=== PATIENT | female | born 1945 | race Caucasian/White ===

== ENCOUNTER 2017-04-22 14:50 | Inpatient (IN) ==
--- NOTE | 2017-04-22 16:32 | IRU History & Physical Report ---
HPI IRU Date: 628 Chief complaint: My back hurts HPI: Ms. Keller is a very pleasant 71-year-old female who was mowing her yard on 02/2017. Referring physician is Dr. Val Shabazz and Dr. Frederick Hale in [place]. Her personal physician is Chitra Tapia MD. She was backing up while she was mowing and fell, landing on her bottom. She did have immediate pain in her lumbar spine area. However she got back up and finished mowing her yard. Over the next several weeks she continued to have pain in the back. Also had discomfort and what she describes as "sciatica" down the left leg. (She has had sciatica down the right leg previously but not down the left leg). Pain became worse and worse and she was encouraged by her neighbor to seek medical attention. She went to the emergency department in this regard on April [address] scan of the lumbar spine revealed an acute burst fracture of L3 with retropulsion of fragments. Dr. Hale was contacted and recommended immediate transfer to [facility]. She underwent surgery at [facility] on 04/18/2017. At that time and L2 - L4 laminectomy was done with instrumentation and fusion of L1-L5. Since then she has had continued discomfort in the back but it is getting better. She has had significant functional decline and is anticipated to be a good candidate for acute rehabilitation. At home she lives in her own home alone. She does have 2 steps to get into her house. She has used a walker in the past in conjunction with a knee replacement. However that was over a year ago and normally she does not use assistive devices. 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 She otherwise remains very active. Prior to her fall, she was independent with all activities. Since then she is minimal assistance for bathing and upper body dressing, moderate assistance for lower body dressing, minimal assistance for toileting, minimal assistance for bed/chair/wheelchair transfers, moderate assistance for trunk toilet transfers and total assistance for walking. She is able to walk with a rolling walker 15 feet. She is at risk for respiratory complications in view of her sedentary postoperative status. She is at risk for surgical site infection due to decreased activity level as well. She does have history of supraventricular tachycardia which flares up when she is under stress. In addition she is at risk for constipation in view of the use of narcotics. She does tend toward depression she states and is on venlafaxine in this regard. Because the use of narcotics she is at risk for more depressive symptoms. She is at risk for falls and subsequent injury. The following medical conditions are noted and require active monitoring and/or management: 1. History of supraventricular tachycardia 2. Depression 3. Risk for wound infection 4. Risk for falls The following therapies will be needed: 1. Physical therapy: for transfers and ambulation and stairs. 2. Occupational therapy: for ADL's and transfers. 3. Medical management: for the above conditions. 4. 24 hour Rehabilitation Nursing to monitor and address the following: Blood pressure, vital signs, pain management, bowel control in view of constipation. [facility] Patient Stated Medical History Osteoarthritis Yes Other Musculoskeletal Yes: OSTEOPOROSIS Medical History Updates: 1. Supraventricular tachycardia intermittently. 2. Depression. 3. Hypertension. 4. Osteoarthritis of the knees Surgical History: 1. Bilateral total knee replacements. 2. Cholecystectomy. 3. Pelvic cyst removalapparently benign. 4. Remote history of vaginal hysterectomy with subsequent removal of cervix. 5. Some type of gynecologic surgery related to IUD infection. 6. L2-3 laminectomy and L1-5 instrumented fusion Family History: Patient's father from lung cancer. He did smoke. Mother in relationship to a heart valve surgery. 2 brothers are both from "heart attack." 2 sisters are . One at age 14 from spinal meningitis. Another from breast cancer. - Social History Smoking status: Former smoker Packs per day: 0.5 (started at age 10 and smoked until age 40:1/2 pack daily or less) Substance use type: does not use Alcohol intake: current Alcohol intake frequency: other (drinks occasional beer typically in the summer. 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 She is . She lives alone in her own home. Review of Systems - Constitutional Constitutional: Present: fatigue - EENMT Eyes: Absent: blurry vision, change in vision, diplopia Balance: Absent: vertigo - Cardiovascular Cardiovascular: Absent: chest pain, palpitations, syncope, dyspnea on exertion, orthopnea, edema Rhythm: Present: regular rhythm Vascular: Absent: Raynaud's, atrophy, intermittent claudication, pedal edema, phlebitis - Respiratory Respiratory: Absent: cough, dyspnea, hemoptysis, dyspnea on exertion, wheezing, pain on inspiration, chest congestion, excessive phlegm production - Gastrointestinal Gastrointestinal: Present: abdominal pain (in relationship to possible abdominal wall hernia), change in bowel habits, constipation. Absent: dyspepsia , dysphagia, early satiety, hematemesis, hematochezia, melena, nausea - Musculoskeletal Musculoskeletal: Absent: abnormal gait, arthralgias - Integumentary/Breasts Integumentary: Absent: alopecia, change in hair, erythema, lesions - Neurological Neurological: Present: paresthesias (left leg discomfort since the fall). Absent: abnormal gait, abnormal movements, focal weakness, frequent falls - Psychiatric Psychiatric: Absent: abnormal sleep pattern, anhedonia Medications Home Medications Medication Instructions Recorded Confirmed Type Metoprolol Tartrate 12.5 mg PO DAILY #0 03/15/11 04/13/17 History Venlafaxine HCl [Effexor Xr] 37.5 mg PO DAILY #0 03/15/11 04/13/17 History Melatonin 3 mg PO HS #0 03/20/13 04/13/17 History Ibuprofen [Advil] 800 mg PO Q8H PRN #0 tab 08/21/13 04/13/17 History Acetaminophen [Acetaminophen ER] 1,300 mg PO TID PRN 04/13/17 04/13/17 History Calcium Carbonate 1,200 mg PO DAILY 04/13/17 04/13/17 History Cholecalciferol (Vitamin D3) 10,000 unit PO DAILY 04/13/17 04/13/17 History [Vitamin D3] DiltiaZEM IR [Cardizem Ir] 30 mg PO BID 04/13/17 04/13/17 History Omeprazole [Prilosec] 20 mg PO ACB 04/13/17 04/13/17 History Polyethylene Glycol 3350 [Miralax] 17 gm PO DAILY PRN 04/13/17 04/13/17 History Vitamin E 6 tab PO DAILY 04/13/17 04/13/17 History hydrOXYzine HCl [Hydroxyzine HCl] 25 mg PO TID PRN 04/13/17 04/13/17 History Allergies Allergy/AdvReac Type Severity Reaction Status Date / Time naproxen Allergy Restlessnes Verified 04/13/17 11:24 s Results IRU - Labs Labs: Outside records from [facility] are reviewed. Exam - Constitutional Present: no acute distress, average body habitus, cooperative - Routine HEENT Exam Head: Present: normocephalic, atraumatic, abrasion, hematoma Eye: Present: EOMI, PERRL. Absent: conjunctival icterus, scleral injection, conjunctivae pink ENT: Present: mucous membranes moist, oropharynx clear - Routine Neck Exam Present: supple, full ROM - Routine Respiratory Exam Present: CTA bilaterally. Absent: accessory muscle use, dyspnea, decreased breath sounds, prolonged expiratory phase, rales, respiratory distress, rhonchi , wheezes, crackles - Routine Cardiovascular Exam Present: RRR, S1, S2, no murmur. Absent: S3, S4 - Routine Abdominal Exam Present: soft, normoactive bowel sounds, non distended, non tender. Absent: organomegaly, mass - Routine Extremities Exam Absent: cyanosis, clubbing, edema, non tender - Routine Back/Spine/Pelvis Exam Back/Spine: Absent: full ROM - Routine Skin Exam Present: intact, dry, warm. Absent: erythema, lesions - Routine Neurological Exam Present: alert, oriented X3, CN II-XII intact - Routine Psychiatric Exam Present: normal affect, normal thought process, cooperative, good insight, good judgment Sepsis Assessment - Evaluation SIRS Criteria: none IRU A/P (1) Traumatic compression fracture of L3 lumbar vertebra Qualifiers: Encounter type: initial encounter Fracture type: closed Qualified Code(s) : S32.030A - Wedge compression fracture of third lumbar vertebra, initial encounter for closed fracture Current visit: Yes Status: Acute She is status post repair of L3 burst fracture from fall from standing height. Continues to have pain in the back as well as some left leg radiation of discomfort. An individualized program of intensive physical therapy and occupational therapy will be designed for this patient. She is at risk for poor wound healing due to sedentary activity from her surgery. (2) Benign essential hypertension Current visit: Yes Status: Chronic We'll monitor her blood pressures carefully. She does have history of SVT and we 'll monitor this as well. (3) Depression Qualifiers: Depression Type: major depressive disorder Major depression recurrence: single episode Active/Remission status: in partial remission Qualified Code( s): F32.4 - Major depressive disorder, single episode, in partial remission Current visit: Yes Status: Acute Patient reports that she has a history of depression but is on venlafaxine at present. Use of narcotics may exacerbate this as well. DVT Prophylaxis: SCD's Resuscitation Status: Full Code - Course Hospital Course: Ramon Bryan MD: - Interventions to Obtain Goals PT Treatment Plan: Balance/Proprioception, Functional Activities, Gait Training , Patient/Family Education OT Treatment Plan: ADL (Basic Care), Balance Training, IADL, Pt./Family Education Goals Progress/Modifications: It is anticipated the patient will achieve a modified independent level of functioning at the conclusion of therapy. She will return to her home in a safe manner able to care for herself. We will also be involved with pain management and blood pressure management as well as depression treatment.
--- NOTE | 2017-04-22 16:55 | IRU 24Hr Post Admit Eval ---
24 Hr Post Admission Physical - Relevant Changes Relevant Changes: No Reviewed: I have reviewed the patient's information and concur with the finding and results of the pre-admission screen. Certification: I certify the patient for rehabilitation. - Patient Condition (1) Traumatic compression fracture of L3 lumbar vertebra Status: Acute Qualifiers: Encounter type: initial encounter Fracture type: closed Qualified Code(s) : S32.030A - Wedge compression fracture of third lumbar vertebra, initial encounter for closed fracture Code(s): S32.030A - Wedge compression fracture of third lumbar vertebra, initial encounter for closed fracture Classification: Present on IRF Admission, IRF Tx That Should Address Diagnosis, Diagnosis Requiring Medical Follow Up (2) Benign essential hypertension Status: Chronic Code(s): I10 - Essential (primary) hypertension Classification: Present on IRF Admission, IRF Tx That Should Address Diagnosis, Diagnosis Requiring Medical Follow Up (3) Depression Status: Acute Qualifiers: Depression Type: major depressive disorder Major depression recurrence: single episode Active/Remission status: in partial remission Qualified Code( s): F32.4 - Major depressive disorder, single episode, in partial remission Code(s): F32.9 - Major depressive disorder, single episode, unspecified Classification: Present on IRF Admission, IRF Tx That Should Address Diagnosis, Diagnosis Requiring Medical Follow Up - Prior Functional Status Lives With: Alone Residence Type: Apartment/Private Home Assitive Devices: None Prior Functional Status: Indep. at home or school, Used no assistive device, Indep. w/ IADL - Current Functional Status Current Level of Function: She requires minimal assistance for bathing, upper body dressing, toileting, bed /chair/wheelchair transfers. She requires moderate assistance for lower body dressing, toilet transfers. She requires total assistance for walking. She is able to walk with a rolling walker 15 feet. Failed Alternative Therapy: Arrived from Acute Care Patient Requirements: The patient requires oversight by rehabilitation physician to manage their rehabilitation treatment plan and multidisciplinary approach to care that can only be provided in an IRF and requires a multidisciplinary approach to care, provided by professional PTs, OTs, STs, dieticians, RTs, rehabilitation nurses and is not available in lesser levels of care. Limitations Req: Mobility Impairment, ADL Impairment, Limited Mobility Physical Therapy Minutes: 90 Occupational Therapy Minutes: 90 Therapy: The patient is to receive therapy at least 5 days a week. - Complications/Comorbidities Impact on Functional Outcomes: Her recent fracture and repair resulting in significant pain will impact her functional recovery. In addition she has left leg sciatica likely from the fracture as well which may impact her functional recovery. Barriers to Discharge: Weakness, Balance, Endurance, Pain Control - Plan to Avoid Complications Plan to Avoid Complications: The patient cannot receive this care in a lesser intensive setting such as [facility] or Outpatient Therapy due to the patient requiring the following : Pain management, avoidance of constipation, need for closely monitoring the patient's wound which is at risk of infection, history of SVT and hypertension. .
[2017-04-22 16:58] VITALS: BMI 28.5
[2017-04-22] MEDS ORDERED: HYDROCODONE/APAP 7.5 MG/325 MG TABLET PO PRN (17:03)
[2017-04-22] MEDS ORDERED: POLYETHYL. GLYCOL 3350 BOTTLE 238 GM PO PRN (17:03)
[2017-04-22] MEDS ORDERED: ACETAMINOPHEN 325 MG TABLET PO PRN (17:03)
[2017-04-22] MEDS: DiltiaZEM IR 30 MG TABLET PO SCH (21:08)
[2017-04-22] MEDS: HYDROCODONE/APAP 7.5 MG/325 MG TABLET PO PRN (21:42)
[2017-04-23] MEDS: HYDROCODONE/APAP 7.5 MG/325 MG TABLET PO PRN ×4 (04:26→17:48)
[2017-04-23] MEDS: PANTOPRAZOLE 40 MG TABLET PO SCH (05:35)
[2017-04-23] MEDS ORDERED: Venlafaxine XR 37.5 MG CAPSULE (24hr) PO SCH (09:00)
[2017-04-23] MEDS: ENOXAPARIN 40 MG/0.4 ML INJECTION SQ SCH (09:31)
[2017-04-23] MEDS: POLYETHYL GLYCOL 3350 17gm PACKET PO SCH ×4 (09:31→20:45)
[2017-04-23] MEDS: DOCUSATE SODIUM 100 MG CAPSULE PO SCH ×2 (09:31→09:40)
[2017-04-23] MEDS: CALCIUM CARBONATE 600 MG TABLET PO SCH (09:31)
[2017-04-23] MEDS: DiltiaZEM IR 30 MG TABLET PO SCH ×2 (09:31→20:44)
--- NOTE | 2017-04-23 10:00 | Consult Note ---
<Nkechi Hernandez - Last Filed: 04/23/17 10:08> Consult Information - Data of Consult Consult date: 04/23/17 Requesting Physician: Ramon Bryan MD Primary Care Provider: Chitra Tapia MD. Family Provider: Chitra Tapia MD. - Consult Narrative Reason for consult: Medical management, s/p laminectomy History of present illness: Leslie Keller (Leah) is a 71-year-old female who presented to [facility] emergency department on 04/13/17 for evaluation of severe lower back pain and "sciatica" down her left leg. She reported at that time that she fell backwards while mowing the lawn on 03/22/17 and hit her back on a entry specialists. Since her fall, she had had progressively worsening lower back pain with radiation down her left leg, which she described as "sciatica". Evaluation in the ED included lumbar CT which revealed acute L3 burst fracture with retropulsion. Dr. Hale at [facility] was contacted and he recommended transferring her to [place]. She underwent L2-L4 laminectomy with instrumentation and fusion of L1- L5 on 04/18/17. Since her surgery, her pain has improved but she has experienced significant functional decline. She was accepted to [facility] IRU for intensive therapy for continued strengthening and improvement in functional ability. On exam, she is initially seen while ambulating in the [place]tega with assistance. Complete exam occurs in her room with physical therapy present. She complains of midline lower back pain without radiation. She denies any recent illness, fevers, chill, chest pain, shortness of breath, abdominal pain, nausea, vomiting or dysuria. She admits to occasional non-productive cough since her hospitalization in [place]. She states that she does not have much of an appetite and feels "full". She reports no BM since 04/18 but admits to passing gas. Prior medical records and nursing notes were reviewed. Labs were obtained today and revealed anemia with hemoglobin of 11.2 as well as fasting hyperglycemia with glucose of 126. She denies any history of diabetes. [facility] Patient Stated Medical History Paroxysmal SVT. Hypertension. Hypercholesterolemia. Osteoarthritis, knees. Osteopenia. Vitamin D deficiency. Depression. GERD. Constipation. History of traumatic compression fracture of L3. Surgical History: 1. Bilateral total knee replacements-right 2014, left 2009. 2. Cholecystectomy-2009. 3. Pelvic cyst removalapparently benign. 4. Vaginal hysterectomy with subsequent removal of cervix-1981. 5. Some type of gynecologic surgery related to IUD infection. 6. L2-3 laminectomy and L1-5 instrumented fusion-04/2017. 7. Tonsillectomy-1949. Family History: Mother- 73, CAD, DM, HTN. Father- 53, lung cancer with history of smoking. 5 brothers with 3 still living. 2 brothers both around age 65 with history of CAD, hypertension and DM. Sister- 35, breast cancer. Sister- 14, spinal meningitis. - Social History Smoking status: Former smoker (quit 1984.) Substance use type: does not use Alcohol intake frequency: holidays/special occasions only (beer) Housing: apartment Household members: none Current occupational status: retired Current occupation: social studies department chair Does patient use chewing tobacco?: No Current residence: Apartment/Private Home Social history: PCP - Dr. Tapia. Spine surgery - Dr. Frederick Hale and Dr. Val Shabazz. Review of Systems All systems PM: 10-point ROS was reviewed, no additional remarkable complaints except - Constitutional Constitutional: Absent: chills, fatigue, fever(s) Comments: decreased appetite. - EENMT Eyes: Absent: loss of vision, photophobia Ears: Absent: ear pain Balance: Absent: falling to one side Nose: Absent: nosebleeds Mouth/Throat: Absent: sore throat, changes in swallowing - Cardiovascular Cardiovascular: Absent: chest pain, palpitations, syncope, dyspnea on exertion, orthopnea, edema Vascular: Absent: pedal edema, unilateral swelling - Respiratory Respiratory: Present: cough (dry). Absent: dyspnea, hemoptysis, dyspnea on exertion, wheezing, pain on inspiration, chest congestion - Gastrointestinal Gastrointestinal: Present: constipation. Absent: abdominal pain, diarrhea, hematochezia, melena, nausea, vomiting - Genitourinary Genitourinary: Absent: difficulty urinating, dysuria, flank pain, hematuria Menstruation: post hysterectomy - Musculoskeletal Musculoskeletal: Present: back pain, muscle weakness. Absent: deformity, limited range of motion (secondary to back pain.), neck pain - Integumentary/Breasts Integumentary: Absent: rash - Neurological Neurological: Present: weakness. Absent: convulsions, dizziness, headache(s) - Psychiatric Psychiatric: Present: depression - Endocrine Endocrine: Absent: palpitations - Hematologic/Lymphatic Hematologic/Lymphatic: Absent: easy bruising - Allergic/Immunologic Allergic/Immunologic: Absent: itchy eyes, seasonal rhinorrhea Medications Home Medications Medication Instructions Recorded Confirmed Type Metoprolol Tartrate 12.5 mg PO DAILY #0 03/15/11 04/22/17 History Venlafaxine HCl [Effexor Xr] 37.5 mg PO DAILY #0 03/15/11 04/22/17 History Calcium Carbonate 1,200 mg PO DAILY 04/13/17 04/22/17 History Cholecalciferol (Vitamin D3) 10,000 unit PO DAILY 04/13/17 04/22/17 History [Vitamin D3] DiltiaZEM IR [Cardizem Ir] 30 mg PO BID 04/13/17 04/22/17 History Polyethylene Glycol 3350 [Miralax] 17 gm PO DAILY PRN 04/13/17 04/22/17 History Acetaminophen 650 mg PO Q4HR PRN 04/22/17 04/22/17 History Docusate Sodium 100 mg PO 04/22/17 History Hydrocodone/APAP 7.5/325 [[place] 1 - 2 tab PO Q4HR PRN 04/22/17 04/22/17 History 7.5/325] Pantoprazole Sodium [Protonix] 1 tab PO ACB 04/22/17 04/22/17 History Potassium Chloride [Klor-Con 10] 10 meq PO TIDWM 04/22/17 04/22/17 History Sennosides/Docusate Sodium 2 PO BID 04/22/17 History [Senokot-S Tablet] Allergies Allergy/AdvReac Type Severity Reaction Status Date / Time naproxen Allergy Restlessnes Verified 04/13/17 11:24 s Exam Vital Signs: Temperature 98.8 F 04/22/17 23:51 Pulse Rate 63 04/22/17 23:51 Respiratory Rate 16 04/22/17 23:51 Blood Pressure 157/84 H 04/22/17 23:51 Pulse Oximetry 95 04/22/17 23:51 Height/Weight/BMI: Height 5 ft 6 in Weight 176 lb 9.444 oz Body Mass Index 28.5 - Constitutional Present: mild distress, well nourished, well developed, cooperative Comments: appears uncomfortable working with physical therapy. - Routine HEENT Exam Head: Present: normocephalic, atraumatic Eye: Present: PERRL. Absent: conjunctival icterus ENT: Present: mucous membranes moist, dentition normal - Routine Neck Exam Present: supple, trachea midline - Routine Chest/Breast/Axilla Exam Chest wall: Absent: pacemaker - Routine Respiratory Exam Present: CTA bilaterally. Absent: rhonchi, stridor, wheezes, crackles - Routine Cardiovascular Exam Present: RRR, S1, S2 - Routine Abdominal Exam Present: soft, non tender, distended. Absent: guarding Comments: hypoactive bowel sounds. - Routine Extremities Exam Present: edema (trace), pulses intact Comments: limited ROM of lower extremities due to back pain. - Routine Back/Spine/Pelvis Exam Back/Spine: Present: pain with flexion, pain with lateral flexion, pain with rotation Comments: midline lower back tenderness with movement and palpation. Back brace in place. No saddle anesthesia. - Routine Skin Exam Present: intact, dry, warm. Absent: jaundice Comments: afebrile. - Routine Neurological Exam Present: alert, oriented X3, moving all extremities, hearing grossly intact, normal speech - Routine Psychiatric Exam Present: normal affect, cooperative Results - Labs CBC & Chem 7: 04/23/17 04:28 04/23/17 04:28 - Impressions Date of Exam: 04/13/17 PROCEDURE: CT lumbar spine wo con: FINDINGS: The alignment of the lumbar spine is normal for the patient's age. Acute moderate burst fracture of L3 with retropulsion of the posterior superior endplate causing moderate central canal stenosis. Approximately 30% height loss. Mild multilevel degenerative changes. Right neural foraminal narrowing at L4-L5. The paraspinal soft tissues and spinal canal are otherwise unremarkable in appearance. IMPRESSION: Acute L3 burst fracture with retropulsion. Assessment and Plan (1) Traumatic compression fracture of L3 lumbar vertebra Current visit: Yes Status: Acute (2) Constipation Current visit: Yes Status: Acute (3) GERD (gastroesophageal reflux disease) Current visit: Yes Status: Chronic (4) Benign essential hypertension Current visit: Yes Status: Chronic (5) Depression Current visit: Yes Status: Chronic (6) Paroxysmal supraventricular tachycardia Current visit: Yes Status: Chronic DVT Prophylaxis: Lovenox GI Prophylaxis: other (Prilosec) Resuscitation Status: Full Code Assessment and Plan: 71-year-old with history of fall on 03/22/17 resulting in acute L3 burst fracture with retropulsion and underwent L2-L4 laminectomy with instrumentation and L1- L5 fusion on 04/18/17. Assessment History of traumatic compression fracture of L3 - s/p L2-L4 laminectomy with instrumentation and L1-L5 fusion. Constipation, acute. Paroxysmal SVT, chronic. Hypertension, chronic. Hypercholesterolemia, chronic. Osteoarthritis, knees, chronic. Osteopenia, chronic. Vitamin D deficiency, chronic. Depression, chronic. GERD, chronic. Plan Agree with admission to IRU for intensive therapy and pain management per Dr. Bryan. Hospitalist service consulted for medical management. Labs obtained on admission revealed anemia with hemoglobin at 11.2. Will monitor blood counts periodically throughout admission. Fasting hyperglycemia noted with glucose at 126. Review of prior medical records indicates prior episodes of hyperglycemia. No known history of diabetes. Will obtain A1c now for further evaluation as hyperglycemia would place the patient at increased risk of infection and complications. If A1c is elevated, recommend routine BGMs with appropriate treatment. Will change diet to carb controlled. Patient reports occasional dry cough. Lung sounds clear on exam. Encourage incentive spirometry. WBC stable and patient remains afebrile. Recommend further evaluation if cough progresses or patient becomes febrile. Will add MOM and senna plus for additional bowel motivation given constipation and last reported BM on 04/18. History of paroxysmal SVT and hypertension. Continue home medications and monitor blood pressure and pulse closely. Upon discharge, patient's care will be returned to her PCP, Dr. Tapia. - Time spent with patient Time with patient PN: 70 minutes Hospital Course Summary Disclaimer: The visit summary below is not to be considered part of the above Progress Note. Hospital Course: Assessment History of traumatic compression fracture of L3 - s/p L2-L4 laminectomy with instrumentation and L1-L5 fusion. Constipation, acute. Paroxysmal SVT, chronic. Hypertension, chronic. Hypercholesterolemia, chronic. Osteoarthritis, knees, chronic. Osteopenia, chronic. Vitamin D deficiency, chronic. Depression, chronic. GERD, chronic. Plan-04/23/17 (Consult) Agree with admission to IRU for intensive therapy and pain management per Dr. Bryan. Hospitalist service consulted for medical management. Labs obtained on admission revealed anemia with hemoglobin at 11.2. Will monitor blood counts periodically throughout admission. Fasting hyperglycemia noted with glucose at 126. Review of prior medical records indicates prior episodes of hyperglycemia. No known history of diabetes. Will obtain A1c now for further evaluation as hyperglycemia would place the patient at increased risk of infection and complications. If A1c is elevated, recommend routine BGMs with appropriate treatment. Will change diet to carb controlled. Patient reports occasional dry cough. Lung sounds clear on exam. Encourage incentive spirometry. WBC stable and patient remains afebrile. Recommend further evaluation if cough progresses or patient becomes febrile. Will add MOM and senna plus for additional bowel motivation given constipation and last reported BM on 04/18. History of paroxysmal SVT and hypertension. Continue home medications and monitor blood pressure and pulse closely. Upon discharge, patient's care will be returned to her PCP, Dr. Tapia. <CelyNevaeh Silviano - Last Filed: 04/23/17 22:17> Consult Information - Data of Consult Requesting Physician: Ramon Bryan MD Primary Care Provider: Chitra Tapia MD Family Provider: Chitra Tapia MD Exam Vital Signs: Temperature 98.3 F 04/23/17 16:50 Pulse Rate 84 04/23/17 16:50 Respiratory Rate 16 04/23/17 16:50 Blood Pressure 126/76 04/23/17 16:50 Pulse Oximetry 94 04/23/17 16:50 Height/Weight/BMI: Height 1.68 m Weight 80.1 kg Body Mass Index 28.5 Results - Labs CBC & Chem 7: 04/23/17 04:28 04/23/17 04:28 Assessment and Plan (1) Traumatic compression fracture of L3 lumbar vertebra Current visit: Yes Status: Acute (2) Benign essential hypertension Current visit: Yes Status: Chronic (3) Depression Current visit: Yes Status: Chronic (4) Constipation Current visit: Yes Status: Acute Assessment and Plan: I have independently evaluated and examined this patient. I reviewed the chart, the patient's history, and the PHYTOPATHOLOGIST/PA's documented findings as above. We discussed and formulated the assessment and plan as above with additions as below: Mrs. Keller is transferred from [place] after surgical stabilization of traumatic L3 burst fracture as described above. Prior to surgery she reports pain at her low back wrapping around her waist with radiation into the right groin down to the knee. She had had some minor numbness at one point but this wasn't persistent. She describes feeling like her legs are connected to her upper body both pre-and post surgery. She continues to have back pain but pain is different than it was preoperatively and she's only had one episode of radicular pain since surgery. Last bowel movement was one day prior to surgery ( surgery 5 days ago). She is passing gas and abdomen feels distended. She reports avoiding foods due to fear of nausea and worsening constipation. Uncomfortable female, alert, frustrated Respirations nonlabored, breath sounds clear Cardiac rhythm regular with frequent ectopic beats in a trigeminal/ quadrigeminal pattern Abdomen soft with mild distention, no tenderness Sensation intact bilateral lower extremities CT of lumbar spine obtained 04/13 reviewed by myself-L3 fracture identified. Hemoglobin 11.2, A1c 5.3, chemistries otherwise unremarkable, UA negative. Senokot and MiraLAX increased for more effective bowel regimen. Dulcolax suppositories added as needed in addition to fleets enema if necessary. Discontinue Colace-redundant with Senokot-Plus. Given normal A1c will resume regular diet to minimize patient frustrations. Hospital Course Summary Disclaimer: The visit summary below is not to be considered part of the above Progress Note.
--- NOTE | 2017-04-23 11:19 | IRU Progress Note ---
- Subjective/Serverity of Illness Mrs. Mi was evaluated in her room on the rehabilitation unit. She is having quite a bit of pain in her back. She would like a hot pack. Did not sleep well due to the discomfort. She is working with therapy and settling into the rehabilitation routine. Appetite is borderline low. She denies any nausea or vomiting. Her blood sugars minimally elevated. An A1c was checked and is normal at 5.3%. The following medical conditions are noted and require active monitoring and/or management: 1. History of supraventricular tachycardia: She denies any recurrence of her palpitations. These tend to occur when she is under stress. Her rhythm today is regular. 2. Depression: At this time she states that she is doing well with the venlafaxine. 3. Risk for wound infection: Due to her sedentary situation she is at risk for wound infection. Thus far there is no evidence of this. 4. Risk for falls: She is at risk for falls. She is working with therapy to work on endurance and balance and it is anticipated that she will slowly improve in this area. Exam Vital Signs: Temperature 98.8 F 04/22/17 23:51 Pulse Rate 63 04/22/17 23:51 Respiratory Rate 18 04/23/17 10:05 Blood Pressure 157/84 H 04/22/17 23:51 Pulse Oximetry 95 04/22/17 23:51 Height/Weight/BMI: Height 1.68 m Weight 80.1 kg Body Mass Index 28.5 Comments: The patient is awake, alert and oriented and in no acute distress. Pupils are equal. The neck is supple. Chest: Clear to auscultation bilaterally. Cor: RR with no gallop, click nor murmur Abd: soft with normo-active bowel sounds. There are no masses, no tenderness and no guarding. Extremities: No edema is noted. There are good pulses in both ankles. No cyanosis is present. Results IRU - Labs Labs: I reviewed the initial labs. A1c is good. IRU A/P (1) Traumatic compression fracture of L3 lumbar vertebra Qualifiers: Encounter type: initial encounter Fracture type: closed Qualified Code(s) : S32.030A - Wedge compression fracture of third lumbar vertebra, initial encounter for closed fracture Current visit: Yes Status: Acute She does have quite a bit of discomfort in the back. She is wearing a brace. We will provide heating pad to be used as needed. Continue working with therapy. (2) Benign essential hypertension Current visit: Yes Status: Chronic Blood pressure is borderline elevated. We'll continue to monitor this. Likely it is worse due to the pain that she is experiencing. 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 Had a difficult night due to pain. Blood pressures are a bit elevated and we will monitor these. Heating pad well be provided as needed. - Interventions to Obtain Goals PT Treatment Plan: Balance/Proprioception, Functional Activities, Gait Training , Patient/Family Education OT Treatment Plan: ADL (Basic Care), Balance Training, IADL, Pt./Family Education, Ther. Exercise for ADL Goals Progress/Modifications: Time spent with patient and on floor reviewing data and documentin min Barriers to dismissal: Pain, balance, endurance Medical decision-making: We will provide a heating pad. We will adjust the pain medications as needed. However, there was concern about confusion with higher doses of her pain medications. We will keep an eye on this to try to achieve an appropriate balance. Her blood pressure is elevated. However this is likely due to the pain and we will hold off on adjusting blood pressure pills at present although may need to do that. Please note that the patient's individual plan of care was developed and documented today, requiring review of therapy notes, medical conditions and anticipated functional recovery. This required additional medical decision making with regard to interaction of the patient's medical issues with the anticipated functional recovery. Please see separate document
--- NOTE | 2017-04-23 11:20 | IRU Plan of Care ---
[facility] [[email or web address]] Overall Plan of Care - Date Date: 04/23/17 - Patient Impairments (1) Traumatic compression fracture of L3 lumbar vertebra Qualifiers: Encounter type: initial encounter Fracture type: closed Qualified Code(s) : S32.030A - Wedge compression fracture of third lumbar vertebra, initial encounter for closed fracture Code(s): S32.030A - Wedge compression fracture of third lumbar vertebra, initial encounter for closed fracture Status: Acute Classification: Present on IRF Admission, IRF Tx That Should Address Diagnosis, Diagnosis Requiring Medical Follow Up (2) Constipation Code(s): K59.00 - Constipation, unspecified Status: Acute (3) Paroxysmal supraventricular tachycardia Code(s): I47.1 - Supraventricular tachycardia Status: Chronic (4) GERD (gastroesophageal reflux disease) Code(s): K21.9 - Gastro-esophageal reflux disease without esophagitis Status: Chronic (5) Benign essential hypertension Code(s): I10 - Essential (primary) hypertension Status: Chronic Classification: Present on IRF Admission, IRF Tx That Should Address Diagnosis, Diagnosis Requiring Medical Follow Up (6) Depression Qualifiers: Depression Type: major depressive disorder Major depression recurrence: single episode Active/Remission status: in partial remission Qualified Code( s): F32.4 - Major depressive disorder, single episode, in partial remission Code(s): F32.9 - Major depressive disorder, single episode, unspecified Status : Chronic Classification: Present on IRF Admission, IRF Tx That Should Address Diagnosis, Diagnosis Requiring Medical Follow Up - Relevant Changes Relevant Changes: No Reviewed: I have reviewed the patient's information and concur with the finding and results of the pre-admission screen. Certification: I certify the patient for rehabilitation. - Medical Prognosis Medical Prognosis: Good Vital Signs: Last Vital Signs Temp 98.8 F 04/22/17 23:51 Pulse 63 04/22/17 23:51 Resp 18 04/23/17 10:05 BP 157/84 H 04/22/17 23:51 Pulse Ox 95 04/22/17 23:51 - Anticipated Interventions Anticipated Interventions: The patient requires inpatient IRF care for PT, OT, and/or ST for residuals remaining from burst fracture of L3 resulting in muscular weakness and strength deficits. - Current Functional Status Failed Alternative Therapy: Arrived from Acute Care Patient Requires: The patient requires oversight by rehabilitation physician to manage their rehabilitation treatment plan and multidisciplinary approach to care that can only be provided in an IRF and requires a multidisciplinary approach to care, provided by professional PTs, OTs, STs, dieticians, RTs, rehabilitation nurses and is not available in lesser levels of care. Physical Therapy Minutes: 90 Occupational Therapy Minutes: 90 Therapy: The patient is to receive therapy at least 5 days a week. - Anticipated LOS/Outcomes Anticipated Functional Outcome: I anticipate the patient will be able to return to her home with modified independent level of functioning and able to provide her ADLs in an independent or modified independent level. Anticipated DC Destination: Home Health Service Home Safety Plan: The patient will be provided with the development of a Home Safety Plan for return to a home or home-like environment and and to ensure safety post discharge. - Plan to Avoid Complications Barriers to Attaining Goals: Weakness, Balance, Endurance, Pain Control Plan to Avoid Complications: The patient cannot receive this care in a lesser intensive setting such as Snf or Outpatient Therapy due to the patient requiring the following : Close monitoring of wound for evidence of infection, monitoring of neurologic status in view of recent spine surgery, monitoring of blood pressures in view of the elevated blood pressure and history of supraventricular tachycardia..
[2017-04-23] MEDS ORDERED: FALL RISK - PHARMACY CONSULT XX ONE (17:47)
[2017-04-23] MEDS ORDERED: FLEET PHOSPHO - SODA ENEMA 133ml PR PRN (19:31)
[2017-04-23] MEDS ORDERED: BISACODYL 10 MG SUPPOSITORY RECTALLY PRN (19:31)
[2017-04-23] MEDS: SENNA + DOCUSATE TABLET PO SCH (20:44)
[2017-04-23] MEDS ORDERED: SENNA + DOCUSATE TABLET PO SCH (21:00)
[2017-04-24] MEDS: PANTOPRAZOLE 40 MG TABLET PO SCH (06:03)
[2017-04-24] MEDS: HYDROCODONE/APAP 7.5 MG/325 MG TABLET PO PRN ×3 (08:37→18:42)
[2017-04-24] MEDS: POLYETHYL GLYCOL 3350 17gm PACKET PO SCH ×2 (08:38→20:33)
[2017-04-24] MEDS: SENNA + DOCUSATE TABLET PO SCH ×2 (08:38→20:33)
[2017-04-24] MEDS: Venlafaxine XR 37.5 MG CAPSULE (24hr) PO SCH (08:39)
[2017-04-24] MEDS: CALCIUM CARBONATE 600 MG TABLET PO SCH (08:39)
[2017-04-24] MEDS: ENOXAPARIN 40 MG/0.4 ML INJECTION SQ SCH (08:40)
[2017-04-24] MEDS: DiltiaZEM IR 30 MG TABLET PO SCH ×2 (08:46→17:44)
--- NOTE | 2017-04-24 11:05 | IRU Progress Note ---
- Subjective/Serverity of Illness Mrs. Keller was evaluated in her room. She is having quite a bit of discomfort with movement or ambulation. It is not worse but is certainly a barrier to her progress. In addition, she is troubled by no bowel movement since prior to surgery. She reports significant nausea and anorexia. She has been on several bowel management routines. She has received MiraLAX and Dulcolax. She reports no shortness of breath no cough. She has no chest pain. Suggestion from therapy is that we schedule pain med prior to therapy BID. Update on medical issues as follows: 1. History of supraventricular tachycardia: Remains on diltiazem. Denies palpitations here. No chest pain. 2. Depression: Overall she seems to be well-controlled at this time. 3. Risk for wound infection: Due to her sedentary situation she is at risk for wound infection. Her activity is improving. 4. Risk for falls: She is working with therapy and improving in this area. Exam Vital Signs: Temperature 98.6 F 04/23/17 22:01 Pulse Rate 82 04/24/17 08:00 Respiratory Rate 18 04/24/17 08:00 Blood Pressure 141/72 H 04/24/17 08:00 Pulse Oximetry 96 04/24/17 08:00 Height/Weight/BMI: Height 1.68 m Weight 80.1 kg Body Mass Index 28.5 Comments: The patient is awake, alert and oriented and in no acute distress. Pupils are equal. The neck is supple. Chest: Clear to auscultation bilaterally. Cor: RR with no gallop, click nor murmur Abd: The abdomen is soft. She is minimally tender. Bowel sounds are normoactive and not high-pitched. Extremities: No evidence of edema present. Strength appears to be improving.. Results IRU - Labs Labs: Reviewed recent labs etc. IRU A/P (1) Traumatic compression fracture of L3 lumbar vertebra Qualifiers: Encounter type: initial encounter Fracture type: closed Qualified Code(s) : S32.030A - Wedge compression fracture of third lumbar vertebra, initial encounter for closed fracture Current visit: Yes Status: Acute Continues to have discomfort with activity. We will schedule pain medicine prior to therapy sessions twice daily. (2) Constipation Qualifiers: Constipation type: slow transit constipation Qualified Code(s): K59.01 - Slow transit constipation Current visit: Yes Status: Acute She is plagued by constipation since prior to the surgery. Her abdomen is soft although slightly tender. Bowel sounds are normoactive. She is on a bowel regimen at present. (3) Paroxysmal supraventricular tachycardia Current visit: Yes Status: Chronic Denies any current symptoms of palpitations, lightheadedness or chest pain. (4) GERD (gastroesophageal reflux disease) Current visit: Yes Status: Chronic (5) Benign essential hypertension Current visit: Yes Status: Chronic (6) Depression Qualifiers: Depression Type: major depressive disorder Major depression recurrence: single episode Active/Remission status: in partial remission Qualified Code( s): F32.4 - Major depressive disorder, single episode, in partial remission Current visit: Yes Status: Chronic DVT Prophylaxis: Lovenox Resuscitation Status: Full Code - Course Hospital Course: Ramon Bryan MD: 04/23/17 11:17 She is settling in to rehabilitation. Had a difficult night due to pain. Blood pressures are a bit elevated and we will monitor these. Heating pad well be provided as needed. 04/24/17 11:08 She is progressing with therapy. Pain is a limiting factor. We will schedule pain medicine prior to therapy sessions. Struggling with constipation. She is on a bowel regimen. - Interventions to Obtain Goals PT Treatment Plan: Balance/Proprioception, Functional Activities, Gait Training , Manual Therapy, Patient/Family Education, Therapeutic Exercise OT Treatment Plan: ADL (Basic Care), Balance Training, IADL, Pt./Family Education, Ther. Exercise for ADL Goals Progress/Modifications: Time spent with patient and on floor reviewing data and documentin min Barriers to dismissal: Back pain, constipation, balance, endurance Medical decision-making: Assessed her abdomen. She is slightly tender but has normal active bowel sounds. We'll continue the bowel regimen. In addition we will add on pain medication prior to each therapy session to allow greater progress hopefully. She denies any vomiting but does have queasiness and nausea with anorexia presumably related to the constipation versus pain medication.
[2017-04-25] MEDS: PANTOPRAZOLE 40 MG TABLET PO SCH (06:25)
[2017-04-25] MEDS: HYDROCODONE/APAP 7.5 MG/325 MG TABLET PO PRN ×3 (06:43→18:57)
[2017-04-25] MEDS: POLYETHYL GLYCOL 3350 17gm PACKET PO SCH ×2 (08:52→20:02)
[2017-04-25] MEDS: SENNA + DOCUSATE TABLET PO SCH ×2 (08:53→20:02)
[2017-04-25] MEDS: CALCIUM CARBONATE 600 MG TABLET PO SCH (08:53)
[2017-04-25] MEDS: Venlafaxine XR 37.5 MG CAPSULE (24hr) PO SCH (08:54)
[2017-04-25] MEDS: DiltiaZEM IR 30 MG TABLET PO SCH ×2 (08:57→18:01)
--- NOTE | 2017-04-25 09:05 | Progress Note ---
<Maranda Bergeron D - Last Filed: 04/25/17 09:01> Subjective: Leslie was seen as she was getting ready for the day. She is still constipated - last bowel movement was the day before surgery, on 04/17/17. She is having increasing abdominal discomfort, bloating, and nausea. Her appetite is poor. She has been refusing suppositories, but has been taking a variety of oral medications. She states that her back pain is severe at times, especially with PT. She notes some generalized weakness but denies any dizziness. No dyspnea or chest pain. Objective Vital signs: Temperature 98.5 F 04/25/17 08:35 Pulse Rate 88 04/25/17 08:35 Respiratory Rate 16 04/25/17 08:35 Blood Pressure 131/60 04/25/17 08:35 Pulse Oximetry 95 04/25/17 08:35 Height/Weight/BMI: Height 1.68 m Weight 80.1 kg Body Mass Index 28.5 - Constitutional Present: no acute distress, well nourished, well developed - Routine HEENT Exam Eye: Absent: conjunctival icterus, scleral injection ENT: Present: mucous membranes moist - Routine Respiratory Exam Present: CTA bilaterally - Routine Cardiovascular Exam Present: RRR, S1, S2 - Routine Abdominal Exam Present: distended (mild). Absent: normoactive bowel sounds (hypoactive) - Routine Extremities Exam Present: no edema - Routine Back/Spine/Pelvis Exam Back/Spine: Absent: full ROM (TLSO brace) - Routine Skin Exam Present: intact, dry, warm - Routine Neurological Exam Present: alert, oriented X3 - Routine Psychiatric Exam Present: normal affect, normal thought process, cooperative Results - Labs CBC & Chem 7: 04/23/17 04:28 04/23/17 04:28 Assessment and Plan (1) Traumatic compression fracture of L3 lumbar vertebra Current visit: Yes Status: Acute (2) Benign essential hypertension Current visit: Yes Status: Chronic (3) Depression Current visit: Yes Status: Chronic (4) Constipation Current visit: Yes Status: Acute DVT Prophylaxis: Lovenox GI Prophylaxis: Protonix Resuscitation Status: Full Code Assessment and Plan: ASSESSMENT History of traumatic compression fracture of L3 - s/p L2-L4 laminectomy with instrumentation and L1-L5 fusion. Constipation, acute. Paroxysmal SVT. Hypertension. Hypercholesterolemia. Osteoarthritis, knees. Osteopenia. Vitamin D deficiency. Depression. GERD. PLAN Last BM was 04/17/17 - she is having increasing distention, nausea, and discomfort. She has been refusing suppositories. Check KUB to r/o obstruction; likely will add lactulose to current regimen. Labs done on 04/23/17 were largely unremarkable. Pain management per attending. Continue PT/OT. Hospital Course Summary Disclaimer: The visit summary below is not to be considered part of the above Progress Note. Hospital Course: Assessment History of traumatic compression fracture of L3 - s/p L2-L4 laminectomy with instrumentation and L1-L5 fusion. Constipation, acute. Paroxysmal SVT. Hypertension. Hypercholesterolemia. Osteoarthritis, knees. Osteopenia. Vitamin D deficiency. Depression. GERD. Plan-04/23/17 (Consult) Agree with admission to IRU for intensive therapy and pain management per Dr. Bryan. Hospitalist service consulted for medical management. Labs obtained on admission revealed anemia with hemoglobin at 11.2. Will monitor blood counts periodically throughout admission. Fasting hyperglycemia noted with glucose at 126. Review of prior medical records indicates prior episodes of hyperglycemia. No known history of diabetes. Will obtain A1c now for further evaluation as hyperglycemia would place the patient at increased risk of infection and complications. If A1c is elevated, recommend routine BGMs with appropriate treatment. Will change diet to carb controlled. Patient reports occasional dry cough. Lung sounds clear on exam. Encourage incentive spirometry. WBC stable and patient remains afebrile. Recommend further evaluation if cough progresses or patient becomes febrile. Will add MOM and senna plus for additional bowel motivation given constipation and last reported BM on 04/18. History of paroxysmal SVT and hypertension. Continue home medications and monitor blood pressure and pulse closely. Upon discharge, patient's care will be returned to her PCP, Dr. Tapia. 04/25/17 Last BM was 04/17/17 - she is having increasing distention, nausea, and discomfort. She has been refusing suppositories. Check KUB to r/o obstruction; likely will add lactulose to current regimen. Labs done on 04/23/17 were largely unremarkable. Pain management per attending. Continue PT/OT. <Nevaeh Ta - Last Filed: 04/25/17 20:50> Objective Vital signs: Temperature 98.7 F 04/25/17 20:08 Pulse Rate 89 04/25/17 20:08 Respiratory Rate 18 04/25/17 20:08 Blood Pressure 128/62 04/25/17 20:08 Pulse Oximetry 93 04/25/17 20:08 Height/Weight/BMI: Height 1.68 m Weight 80.1 kg Body Mass Index 28.5 Results - Labs CBC & Chem 7: 04/23/17 04:28 04/23/17 04:28 Assessment and Plan (1) Traumatic compression fracture of L3 lumbar vertebra Current visit: Yes Status: Acute (2) Benign essential hypertension Current visit: Yes Status: Chronic (3) Depression Current visit: Yes Status: Chronic (4) Constipation Current visit: Yes Status: Acute Assessment and Plan: I have independently evaluated and examined this patient. I reviewed the chart, the patient's history, and the SOUND SYSTEM INSTALLER/PA's documented findings as above. We discussed and formulated the assessment and plan as above with additions as below: Patient seen earlier this evening to discuss bowel regimen but she reports that she had a large bowel movement after having prune juice with MiraLAX this morning. She was in better spirits today than when seen several days ago and denied abdominal pain at present. Respirations are nonlabored, good airflow, breath sounds clear Abdomen benign Strongly encouraged patient to continue using aggressive bowel regimen as she will likely continue to have difficulty with constipation with limited mobility and ongoing use of narcotics. Hospital Course Summary Disclaimer: The visit summary below is not to be considered part of the above Progress Note.
--- NOTE | 2017-04-25 10:53 | XRay Report ---
Indication: severe constipation; nausea; distention; r/o obstruction PROCEDURE: XR KUB: Encounter: Initial Comparison: None Findings: Lung bases are clear. No gross free air. Postoperative changes in the lumbar spine. Cholecystectomy clips. No significant colonic stool burden appreciated. Bowel gas pattern is nonobstructive and nonspecific. Impression: Nonobstructive nonspecific bowel gas pattern. .
[2017-04-25] MEDS: ENOXAPARIN 40 MG/0.4 ML INJECTION SQ SCH (11:22)
[2017-04-26] MEDS: HYDROCODONE/APAP 7.5 MG/325 MG TABLET PO PRN ×5 (03:22→23:11)
[2017-04-26] MEDS: PANTOPRAZOLE 40 MG TABLET PO SCH ×2 (05:17→05:48)
[2017-04-26] MEDS: Venlafaxine XR 37.5 MG CAPSULE (24hr) PO SCH (08:52)
[2017-04-26] MEDS: CALCIUM CARBONATE 600 MG TABLET PO SCH (08:53)
[2017-04-26] MEDS: POLYETHYL GLYCOL 3350 17gm PACKET PO SCH ×2 (08:53→21:34)
[2017-04-26] MEDS: SENNA + DOCUSATE TABLET PO SCH ×2 (08:54→21:34)
[2017-04-26] MEDS: DiltiaZEM IR 30 MG TABLET PO SCH ×2 (08:55→17:34)
[2017-04-26] MEDS: ENOXAPARIN 40 MG/0.4 ML INJECTION SQ SCH (11:01)
--- NOTE | 2017-04-26 11:51 | IRU Progress Note ---
- Subjective/Serverity of Illness Ms. Keller continues to improve with regard to therapy. She was able to bathe herself today as well as do some personal care needs. This is significant progress in her opinion. In addition she is ambulating. Her pain management continues to be fairly reasonable although she has a lot of pain after she is ambulated for a distance. She wondered about an area of swelling on her back. I personally reviewed the incision. There is some redness but I do not see any evidence of a fluid accumulation. She wondered about taking a shower. She states that she finally did have a bowel movement. Her appetite remains good. There continues to be some discomfort on the left leg although it is mainly down into the groin and anterior thigh rather than down to the knee. She is smiling and making a few jokes. Does not appear to be depressed at the present time. She has had no known recurrence of her supraventricular tachycardia. This will be monitored carefully. Exam Vital Signs: Temperature 98.7 F 04/25/17 20:08 Pulse Rate 80 04/26/17 08:00 Respiratory Rate 18 04/25/17 20:08 Blood Pressure 120/82 04/26/17 08:00 Pulse Oximetry 93 04/25/17 20:08 Height/Weight/BMI: Height 1.68 m Weight 80.1 kg Body Mass Index 28.5 Comments: The patient is awake, alert and oriented and in no acute distress. Pupils are equal. The neck is supple. Chest: Clear to auscultation bilaterally. Cor: RR with no gallop, click nor murmur Abd: soft with normo-active bowel sounds. There are no masses, no tenderness and no guarding. Extremities: No edema is noted. I inspected the wound. It is slightly red but this appears to be more irritation from the sutures. There is scant drainage from the MAGALI site. Results IRU - Labs Labs: Reviewed labs. Hemoglobin remains low. We will check iron studies. IRU A/P (1) Traumatic compression fracture of L3 lumbar vertebra Qualifiers: Encounter type: initial encounter Fracture type: closed Qualified Code(s) : S32.030A - Wedge compression fracture of third lumbar vertebra, initial encounter for closed fracture Current visit: Yes Status: Acute Continues to have discomfort in the low back. I do not see any fluid collection. There remains scant drainage from the MAGALI site. Wound is slightly red , likely related to suture irritation more than anything else. Does not appear to be actively infected. (2) Constipation Qualifiers: Constipation type: slow transit constipation Qualified Code(s): K59.01 - Slow transit constipation Current visit: Yes Status: Acute Did have a bowel movement with assistance. Continue MiraLAX. (3) Paroxysmal supraventricular tachycardia Current visit: Yes Status: Chronic (4) GERD (gastroesophageal reflux disease) Current visit: Yes Status: Chronic (5) Benign essential hypertension Current visit: Yes Status: Chronic Blood pressure overall is well controlled in the 120s. Occasionally up in the 150 range likely related to medication. Denies lightheadedness. (6) Depression Qualifiers: Depression Type: major depressive disorder Major depression recurrence: single episode Active/Remission status: in partial remission Qualified Code( s): F32.4 - Major depressive disorder, single episode, in partial remission Current visit: Yes Status: Chronic (7) Anemia Qualifiers: Anemia type: unspecified type Qualified Code(s): D64.9 - Anemia, unspecified Current visit: Yes Status: Acute Has had worsening hemoglobin from 11 down to 9 g/%. No evidence of overt bleeding. We will check iron studies and stool for occult blood. DVT Prophylaxis: Lovenox Resuscitation Status: Full Code - Course Hospital Course: Ramon Bryan MD: 04/23/17 11:17 She is settling in to rehabilitation. Had a difficult night due to pain. Blood pressures are a bit elevated and we will monitor these. Heating pad well be provided as needed. 04/24/17 11:08 She is progressing with therapy. Pain is a limiting factor. We will schedule pain medicine prior to therapy sessions. Struggling with constipation. She is on a bowel regimen. 04/26/17 11:57 She is progressing with occupational therapy. Also progressing with physical therapy. Pain significant in back and left leg when she exerts herself. Wound was inspected. Minimal redness. Still scant drainage from MAGALI site. She did have a bowel movement. We will check iron studies and stool for occult blood. - Interventions to Obtain Goals PT Treatment Plan: Balance/Proprioception, Functional Activities, Gait Training , Manual Therapy, Patient/Family Education, Therapeutic Exercise OT Treatment Plan: ADL (Basic Care), Balance Training, IADL, Pt./Family Education, Ther. Exercise for ADL Goals Progress/Modifications: Time spent with patient and on floor reviewing data and documentin min Barriers to dismissal: Pain, endurance Medical decision-making: Reviewed labs. Hemoglobin has dropped from 11 down to 9 g percent. We will check iron studies and occult blood. There is still some scant drainage from the MAGALI site. Wound is a little red but does not appear to be infected but we'll monitor this carefully. She is improving with regard to therapies.
--- NOTE | 2017-04-26 13:36 | IRU Team Meeting ---
IRU Team Meeting - Nursing Vital Signs: Vital Signs - 24 hr 04/25/17 16:51 04/25/17 20:08 04/26/17 08:00 Temperature 97.5 F 98.7 F Pulse Rate 73 89 80 Respiratory Rate 16 18 Blood Pressure 152/76 H 128/62 120/82 Pulse Oximetry 94 93 Current Medications: Acetaminophen (Tylenol) 650 mg PO Q4HR PRN PRN Reason: Pain Hydrocodone Bitart/Acetaminophen (Sartell 7.5/325) 1 - 2 tab PO Q4H PRN PRN Reason: Pain Last Admin: 04/26/17 08:53 Dose: 1 tab Bisacodyl (Dulcolax) 10 mg RECTALLY QID PRN PRN Reason: Constipation Calcium Carbonate (Caltrate) 1,200 mg PO DAILY [facility] Last Admin: 04/26/17 08:53 Dose: 1,200 mg Diltiazem HCl (Cardizem Ir) 30 mg PO 0730,1700 [facility] Last Admin: 04/26/17 08:55 Dose: 30 mg Enoxaparin Sodium (Lovenox) 40 mg SQ DAILY [facility] Last Admin: 04/26/17 11:01 Dose: 40 mg Magnesium Hydroxide (Mom) 30 ml PO DAILY PRN PRN Reason: Constipation Last Admin: 04/25/17 06:25 Dose: 30 ml Metoprolol Succinate (Toprol Xl) 12.5 mg PO DAILY [facility] Last Admin: 04/26/17 08:54 Dose: 12.5 mg Pantoprazole Sodium (Protonix Tab) 40 mg PO ACB [facility] Last Admin: 04/26/17 05:48 Dose: Not Given Polyethylene Glycol (Miralax) 17 gm PO BID [facility] Last Admin: 04/26/17 08:53 Dose: 17 gm Potassium Chloride (K-Dur) 10 meq PO TIDWM [facility] Last Admin: 04/26/17 12:24 Dose: 10 meq Senna/Docusate Sodium (Senna Plus Tablet) 2 tab PO BID [facility] Last Admin: 04/26/17 08:54 Dose: 2 tab Sodium Phosphate (Fleet Enema) 1 enema SD DAILY PRN Venlafaxine HCl (Effexor Xr) 37.5 mg PO WB [facility] Last Admin: 04/26/17 08:52 Dose: 37.5 mg Current Medical Issues: Anemia, occasional periods of confusion particularly at night, pain, constipation Comments: I certify that I personally led the interdisciplinary team meeting and agree with comments, barriers and goals indicated. Team meeting was held in the patient's room with the patient and the following family members present: Patient alone. Joi was evaluated today at team meeting in her room. Overall she is improving rather dramatically. She is taking only one or 2 pain pills daily. She has had a bowel movement ultimately after being constipated for some time. Pain continues to be a limitation. In addition there are concerns about safety awareness and she is working on that. She does have evidence of some anemia with hemoglobin currently 9 g percent. We are checking iron and occult blood in the stool. She is occasionally incontinent of urine. There is no drainage from the wound. The MAGALI site has scant to minimal drainage. She will start showering with the wound covered. - Dietary Appetite is good and intake is good. - Physical Therapy Comments: From a physical therapy standpoint she is modified independent functioning to standby assist with bed/chair/wheelchair transfers. She is standby assist to supervision level with ambulation walking some 380 feet with a front-wheeled walker. She is standby assist to supervision level climbing 12 steps. Car transfer ability is standby assistance to supervision level. She will need to go home with a front-wheeled walker. She has met most of her current goals. She is close to meeting the remainder of her goals in the next several days. - Occupational Therapy Comments: The patient is independent functioning for eating, grooming, upper body dressing , toileting assistance and toilet transfer assistance. She is standby assistance and supervision level for lower body dressing, bathing and tub transfer assistance. She has met most of her goals. - Goals 1. Safety with IADLs 2. Watch and 50 feet with modified independent functioning with front-wheeled walker 3. Obtain home personal assistance devices including toilet riser as well as being able to get in and out of bed safely at home. - Barriers to Discharge Barriers to Attaining Goals: Pain Control, Other (safety awareness.) - Care Plan Anticipated DC Destination: Home, Self Care, Home Health Service I have led this team conference and agree with the plan. Anticipated Length of Stay (days): 3
[2017-04-26] MEDS ORDERED: INFLUENZA VAC High Dose 2017-18 (Fluzone HD*) (>=65yo) 0.5ml IM ONE (18:51)
[2017-04-27] MEDS: HYDROCODONE/APAP 7.5 MG/325 MG TABLET PO PRN ×5 (04:44→23:53)
[2017-04-27] MEDS: PANTOPRAZOLE 40 MG TABLET PO SCH ×2 (04:45→07:36)
[2017-04-27] MEDS: DiltiaZEM IR 30 MG TABLET PO SCH ×2 (09:02→17:53)
[2017-04-27] MEDS: Venlafaxine XR 37.5 MG CAPSULE (24hr) PO SCH (09:02)
[2017-04-27] MEDS: CALCIUM CARBONATE 600 MG TABLET PO SCH (09:03)
[2017-04-27] MEDS: ENOXAPARIN 40 MG/0.4 ML INJECTION SQ SCH (09:03)
[2017-04-27] MEDS: SENNA + DOCUSATE TABLET PO SCH ×2 (09:04→23:49)
[2017-04-27] MEDS: POLYETHYL GLYCOL 3350 17gm PACKET PO SCH ×2 (09:04→23:49)
--- NOTE | 2017-04-27 18:01 | Progress Note ---
Progress Note: Joi seen briefly to reassess. She reports having had 3 bowel movements in the last 3 days and denies any ongoing difficulty with abdominal discomfort/ cramping. She feels she is making good progress with therapy and reports tentative plans to return home on Saturday. Adequate pain control. Blood pressure 134/66, 154/78 today Mood is clearly improved from when I initially met her. Respirations nonlabored. Hemoglobin 9.5 yesterday, chemistry stable, iron studies pending-should be back Saturday. Assessment History of traumatic compression fracture of L3 - s/p L2-L4 laminectomy with instrumentation and L1-L5 fusion. Constipation, acute. Paroxysmal SVT. Hypertension. Hypercholesterolemia. Osteoarthritis, knees. Osteopenia. Vitamin D deficiency. Depression. GERD. Plan-04/23/17 Nursing notes reviewed. Doing well. No interventions taken at this time.
[2017-04-27] MEDS ORDERED: INFLUENZA VAC. INJ. ADMIN CHARGE INJ ONE (19:00)
[2017-04-28] MEDS: HYDROCODONE/APAP 7.5 MG/325 MG TABLET PO PRN ×5 (04:36→22:05)
[2017-04-28] MEDS: PANTOPRAZOLE 40 MG TABLET PO SCH (06:18)
[2017-04-28] MEDS: POLYETHYL GLYCOL 3350 17gm PACKET PO SCH ×2 (09:02→20:18)
[2017-04-28] MEDS: Venlafaxine XR 37.5 MG CAPSULE (24hr) PO SCH (09:02)
[2017-04-28] MEDS: DiltiaZEM IR 30 MG TABLET PO SCH ×2 (09:02→17:49)
[2017-04-28] MEDS: CALCIUM CARBONATE 600 MG TABLET PO SCH (09:02)
[2017-04-28] MEDS: SENNA + DOCUSATE TABLET PO SCH ×2 (09:03→20:18)
[2017-04-28] MEDS: ENOXAPARIN 40 MG/0.4 ML INJECTION SQ SCH (09:03)
[2017-04-28 16:29] VITALS: PULSE 72; RESP 16
[2017-04-29 00:09] VITALS: BP 144/75; TEMP 98.1; O2SAT 96
[2017-04-29] MEDS: HYDROCODONE/APAP 7.5 MG/325 MG TABLET PO PRN ×3 (01:59→10:39)
[2017-04-29] MEDS: PANTOPRAZOLE 40 MG TABLET PO SCH (06:20)
--- NOTE | 2017-04-29 08:41 | Discharge Instructions ---
Discharge Plan - Med Rec/Dispo Referrals/Follow Up: Frederick Hale [Physician] - (Dr. Genaro Hale on 06/27/17 at 9:50 am for Post-Op follow-up. [phone] [facility] [address] [place] [address]) Chitra Tapia MD [Family Provider] - (Dr. Kassidy Tapia on 05/07/17 at 3:15 pm for Hosp. follow-up. [address] [place] [address]) Additional Instructions: Your iron level was low at 28. Please start taking iron daily along with vitamin C to help absorption. FYI, iron may cause constipation so you may need to hold off on taking this until your bowels have become more regular. Potassium improved to 4.0 on day of discharge. Continue KDur 10 mEq TID with meals. Follow up with Dr. Tapia about how long to continue potassium supplementation. Prescriptions: New PEG 3350 17gm PACKET [Miralax] 17 gm PO BID packet Senna + Docusate [Senna Plus Tablet] 2 tab PO BID tablet Ascorbic Acid [Vitamin C] 500 mg PO ACB #30 tablet.er Ferrous Sulfate 325 mg PO ACB #30 tab Continue Venlafaxine HCl [Effexor Xr] 37.5 mg PO DAILY #0 Cholecalciferol (Vitamin D3) [Vitamin D3] 10,000 unit PO DAILY DiltiaZEM IR [Cardizem Ir] 30 mg PO BID Calcium Carbonate 1,200 mg PO DAILY Pantoprazole Sodium [Protonix] 1 tab PO ACB Metoprolol Tartrate 12.5 mg PO DAILY #0 Acetaminophen 650 mg PO Q4HR PRN PRN Reason: Pain Potassium Chloride [Klor-Con 10] 10 meq PO TIDWM #14 tablet.er Discontinued Sennosides/Docusate Sodium [Senokot-S Tablet] 2 PO BID Docusate Sodium 100 mg PO Polyethylene Glycol 3350 [Miralax] 17 gm PO DAILY PRN PRN Reason: Constipation No Action Hydrocodone/APAP 7.5/325 [Manati 7.5/325] 1 - 2 tab PO Q4HR PRN PRN Reason: Pain
[2017-04-29] MEDS: DiltiaZEM IR 30 MG TABLET PO SCH (09:15)
[2017-04-29] MEDS: CALCIUM CARBONATE 600 MG TABLET PO SCH (09:16)
[2017-04-29] MEDS: POLYETHYL GLYCOL 3350 17gm PACKET PO SCH (09:17)
[2017-04-29] MEDS: Venlafaxine XR 37.5 MG CAPSULE (24hr) PO SCH (09:17)
[2017-04-29] MEDS: SENNA + DOCUSATE TABLET PO SCH (09:17)
--- NOTE | 2017-04-29 10:05 | IRU Progress Note ---
- Subjective/Serverity of Illness Joi is quite cheerful and positive as she looks toward going home today. She feels confident that she can care for herself. She does have family members in town to assist. Home health will also be arranged. She has placement for her dogs so they will not be under foot. Still has a cat at home and I warned her about making sure that the cat is not in the way. She continues to have discomfort and is taking 4-6 hydrocodone daily. I urged her to limit this to 4 daily and we will give her a prescription for 60. She hasn't been limiting to see Dr. Hale in follow-up as well as Dr. Tapia. Exam Vital Signs: Temperature 98.1 F 04/29/17 08:00 Pulse Rate 72 04/29/17 08:00 Respiratory Rate 16 04/29/17 08:00 Blood Pressure 144/75 H 04/29/17 08:00 Pulse Oximetry 96 04/29/17 08:00 Height/Weight/BMI: Height 1.68 m Weight 80.1 kg Body Mass Index 28.5 Comments: The patient is awake, alert and oriented and in no acute distress. Pupils are equal. The neck is supple. Chest: Clear to auscultation bilaterally. Cor: RR with no gallop, click nor murmur Abd: soft with normo-active bowel sounds. There are no masses, no tenderness and no guarding. Extremities: No edema is noted. There are good pulses in both ankles. No cyanosis is present. I personally inspected the back wound. The wound itself is slightly red but this appears to be consistent with simply a reaction to the sutures and not consistent with an infection. The lower MAGALI site shows scant if any drainage. Nothing is moist at present and there just is a small scab. Results IRU - Labs Labs: Iron studies are consistent with anemia of chronic disease. Possibly this is nutritional. IRU A/P (1) Traumatic compression fracture of L3 lumbar vertebra Qualifiers: Encounter type: initial encounter Fracture type: closed Qualified Code(s) : S32.030A - Wedge compression fracture of third lumbar vertebra, initial encounter for closed fracture Current visit: Yes Status: Acute Continues to have pain as anticipated in her back. Has been instructed in the use of the brace. (2) Constipation Qualifiers: Constipation type: slow transit constipation Qualified Code(s): K59.01 - Slow transit constipation Current visit: Yes Status: Acute She states she is having bowel movements and that her use of MiraLAX is very helpful. (3) Paroxysmal supraventricular tachycardia Current visit: Yes Status: Chronic (4) GERD (gastroesophageal reflux disease) Current visit: Yes Status: Chronic (5) Benign essential hypertension Current visit: Yes Status: Chronic Blood pressures are reviewed and are typically in the 140 range. 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 (7) Anemia Qualifiers: Anemia type: unspecified type Qualified Code(s): D64.9 - Anemia, unspecified Current visit: Yes Status: Acute The iron studies appear to be consistent with anemia of chronic disease in view of the low TIBC. DVT Prophylaxis: Lovenox Resuscitation Status: Full Code - Course Hospital Course: Ramon Bryan MD: 04/23/17 11:17 She is settling in to rehabilitation. Had a difficult night due to pain. Blood pressures are a bit elevated and we will monitor these. Heating pad well be provided as needed. 04/24/17 11:08 She is progressing with therapy. Pain is a limiting factor. We will schedule pain medicine prior to therapy sessions. Struggling with constipation. She is on a bowel regimen. 04/26/17 11:57 She is progressing with occupational therapy. Also progressing with physical therapy. Pain significant in back and left leg when she exerts herself. Wound was inspected. Minimal redness. Still scant drainage from MAGALI site. She did have a bowel movement. We will check iron studies and stool for occult blood. 04/29/17 10:09 She feels confident in going home. Home health will be arranged. She will walk with the front-wheeled walker. She will use the brace when she is up and about. - Interventions to Obtain Goals PT Treatment Plan: Balance/Proprioception, Functional Activities, Gait Training , Manual Therapy, Patient/Family Education, Therapeutic Exercise OT Treatment Plan: ADL (Basic Care), Balance Training, IADL, Pt./Family Education, Ther. Exercise for ADL Goals Progress/Modifications: Arrangements have been made for a safe transition to her home environment.
--- NOTE | 2017-04-29 10:14 | Discharge Instructions ---
Discharge Plan - Med Rec/Dispo Referrals/Follow Up: Frederick Hale [Physician] - (Dr. Genaro Hale on 06/27/17 at 9:50 am for Post-Op follow-up. [facility] [address] [place] [address]) Chitra Tapia MD [Family Provider] - (Dr. Kassidy Tapia on 05/07/17 at 3:15 pm for Hosp. follow-up. [address] [place] [address]) Additional Instructions: Your iron level was low at 28. Please start taking iron daily along with vitamin C to help absorption. FYI, iron may cause constipation so you may need to hold off on taking this until your bowels have become more regular. Potassium improved to 4.0 on day of discharge. Continue KDur 10 mEq TID with meals. Follow up with Dr. Tapia about how long to continue potassium supplementation. Prescriptions: New PEG 3350 17gm PACKET [Miralax] 17 gm PO BID packet Senna + Docusate [Senna Plus Tablet] 2 tab PO BID tablet Ascorbic Acid [Vitamin C] 500 mg PO ACB #30 tablet.er Ferrous Sulfate 325 mg PO ACB #30 tab Continue Venlafaxine HCl [Effexor Xr] 37.5 mg PO DAILY #0 Cholecalciferol (Vitamin D3) [Vitamin D3] 10,000 unit PO DAILY DiltiaZEM IR [Cardizem Ir] 30 mg PO BID Calcium Carbonate 1,200 mg PO DAILY Pantoprazole Sodium [Protonix] 1 tab PO ACB Metoprolol Tartrate 12.5 mg PO DAILY #0 Acetaminophen 650 mg PO Q4HR PRN PRN Reason: Pain Potassium Chloride [Klor-Con 10] 10 meq PO TIDWM #14 tablet.er Changed Hydrocodone/APAP 7.5/325 [[place] 7.5/325] 1 tab PO QID PRN #60 tablet PRN Reason: Pain Discontinued Sennosides/Docusate Sodium [Senokot-S Tablet] 2 PO BID Docusate Sodium 100 mg PO Polyethylene Glycol 3350 [Miralax] 17 gm PO DAILY PRN PRN Reason: Constipation Discharge Instructions/Outpatient Orders: Provider Discharge Instructions Location: Determined By Patient - Disposition 01 Discharged Home, Self-Care
--- NOTE | 2017-04-29 10:23 | Discharge Summary ---
Discharge Information Date of admission: 04/22/17 15:35 Anticipated date of discharge: 04/29/17 Attending Physician: Ramon Bryan MD Primary care physician: Chitra Tapia MD Consults: 04/22/17 16:57 Physician Consult [CONS] Routine Consulting Provider: Nevaeh Ta Reason For Exam: medical management Ordering Provider has Notified Research Dietitian: No - Discharge Diagnosis (1) Traumatic compression fracture of L3 lumbar vertebra Status: Acute Discharge Diagnosis: Traumatic compression fracture of L3 Lumbar vertebra, s/p stabilization by operative intervention (2) Constipation Status: Acute Discharge Diagnosis: Acute on chronic slow transit constipation (3) Paroxysmal supraventricular tachycardia Status: Chronic (4) GERD (gastroesophageal reflux disease) Status: Chronic (5) Benign essential hypertension Status: Chronic Discharge Diagnosis: Benign essential hypertension (6) Depression Status: Chronic Discharge Diagnosis: Major depression in remission (7) Anemia Status: Acute Discharge Diagnosis: Anemia of chronic disease - Laboratory Labs: 04/29/17 09:25 04/29/17 09:25 History of Present Illness HPI: 04/29/17 10:22 Mrs. Keller is a 71-year-old female who was mowing her yard at home. She was backing up and lost her balance causing her to fall. She did have some immediate pain but continued mowing her yard. The pain became worse and worse over the next couple weeks and she finally did seek attention for this. She was noted to have a burst fracture of L3. She was transferred to [place] for further evaluation and was seen by Dr. Danuta Shabazz and Dr. Frederick Hale. Dr. Hale performed stabilization surgery on L3. She continued to have significant pain and weakness and was transferred to acute rehabilitation for further training to allow her to return to her previous level of functioning. Procedure performed was L2-4 laminectomy with instrumentation and fusion from L1 -5. The procedure was 04/18/2017 at . A MAGALI drain had been in place and had had some drainage. That had slowed down quite a bit by the time she was transferred to [facility] acute rehabilitation. 04/29/17 10:23 Hospital Course This is a general summary of the patient's hospital course. For more details refer to the complete medical record. She was admitted on 04/22/2017 to acute rehabilitation at [facility]. An intensive individualized program of occupational therapy and physical therapy was designed for her. In addition, she does have history of supraventricular tachycardia but has had no recurrence of this. Also has constipation, reflux and depression. Each of these were monitored and treated during the time of her stay on acute rehabilitation. From an occupational therapy standpoint, grooming improved from standby assistance to independent functioning. Bathing improved from bag bath with minimal assistance to modified independent bathing. Upper body dressing improved from standby assistance to independent functioning. Lower body dressing improved from minimal assistance to modified independent. Toileting improved from standby assistance to independent functioning. She worked with physical therapy. She walked with a front-wheeled walker. Initial distance was 150 feet with standby assistance. Also distance was not 150 feet with modified independent functioning. She was ultimately able to climb 12 steps with standby assistance and did well. Continues to have discomfort. I urged her to limit her intake of pain medicine to 4 tablets daily if possible. A prescription of 60 hydrocodone/acetaminophen 7.5/325 tablets were given to her with no refills. I personally inspected the wound at the time of her dismissal. It is slightly red but this appears to be more of a suture irritation rather than true signs of infection. There is no drainage from the MAGALI site. She is afebrile. Hospital course: Assessment History of traumatic compression fracture of L3 - s/p L2-L4 laminectomy with instrumentation and L1-L5 fusion. Constipation, acute. Paroxysmal SVT. Hypertension. Hypercholesterolemia. Osteoarthritis, knees. Osteopenia. Vitamin D deficiency. Depression. GERD. Plan-04/23/17 (Consult) Agree with admission to IRU for intensive therapy and pain management per Dr. Bryan. Hospitalist service consulted for medical management. Labs obtained on admission revealed anemia with hemoglobin at 11.2. Will monitor blood counts periodically throughout admission. Fasting hyperglycemia noted with glucose at 126. Review of prior medical records indicates prior episodes of hyperglycemia. No known history of diabetes. Will obtain A1c now for further evaluation as hyperglycemia would place the patient at increased risk of infection and complications. If A1c is elevated, recommend routine BGMs with appropriate treatment. Will change diet to carb controlled. Patient reports occasional dry cough. Lung sounds clear on exam. Encourage incentive spirometry. WBC stable and patient remains afebrile. Recommend further evaluation if cough progresses or patient becomes febrile. Will add MOM and senna plus for additional bowel motivation given constipation and last reported BM on 04/18. History of paroxysmal SVT and hypertension. Continue home medications and monitor blood pressure and pulse closely. Upon discharge, patient's care will be returned to her PCP, Dr. Tapia. 04/25/17 Last BM was 04/17/17 - she is having increasing distention, nausea, and discomfort. She has been refusing suppositories. Check KUB to r/o obstruction; likely will add lactulose to current regimen. Labs done on 04/23/17 were largely unremarkable. Pain management per attending. Continue PT/OT. Time spent with patient: 25 - 35 minutes Discharge Plan - Med Rec/Dispo Referrals/Follow Up: Frederick Hale [Physician] - (Dr. Genaro Hale on 06/27/17 at 9:50 am for Post-Op follow-up. [address] [place] [address]) Chitra Tapia MD [Family Provider] - (Dr. Kassidy Tapia on 05/07/17 at 3:15 pm for Hosp. follow-up. [address] [place] [address]) Additional Instructions: Your iron level was low at 28. Please start taking iron daily along with vitamin C to help absorption. FYI, iron may cause constipation so you may need to hold off on taking this until your bowels have become more regular. Potassium improved to 4.0 on day of discharge. Continue KDur 10 mEq TID with meals. Follow up with Dr. Tapia about how long to continue potassium supplementation. Prescriptions: New PEG 3350 17gm PACKET [Miralax] 17 gm PO BID packet Senna + Docusate [Senna Plus Tablet] 2 tab PO BID tablet Ascorbic Acid [Vitamin C] 500 mg PO ACB #30 tablet.er Ferrous Sulfate 325 mg PO ACB #30 tab Continue Venlafaxine HCl [Effexor Xr] 37.5 mg PO DAILY #0 Cholecalciferol (Vitamin D3) [Vitamin D3] 10,000 unit PO DAILY DiltiaZEM IR [Cardizem Ir] 30 mg PO BID Calcium Carbonate 1,200 mg PO DAILY Pantoprazole Sodium [Protonix] 1 tab PO ACB Metoprolol Tartrate 12.5 mg PO DAILY #0 Acetaminophen 650 mg PO Q4HR PRN PRN Reason: Pain Potassium Chloride [Klor-Con 10] 10 meq PO TIDWM #14 tablet.er Changed Hydrocodone/APAP 7.5/325 [[place] 7.5/325] 1 tab PO QID PRN #60 tablet PRN Reason: Pain Discontinued Sennosides/Docusate Sodium [Senokot-S Tablet] 2 PO BID Docusate Sodium 100 mg PO Polyethylene Glycol 3350 [Miralax] 17 gm PO DAILY PRN PRN Reason: Constipation Discharge Instructions/Outpatient Orders: Provider Discharge Instructions Location: Determined By Patient
[2017-04-29] MEDS: ENOXAPARIN 40 MG/0.4 ML INJECTION SQ SCH (10:37)
== END 2017-04-29 12:10 | disposition home health service (06) | DRG 560 ==
PROVIDERS: ADMIT Internal Medicine; ATTEND Internal Medicine